=== PATIENT | female | born 1980 | race African-American/Black ===

== ENCOUNTER 2018-08-06 10:08 | Emergency (ER) | payer MEDICARE, OTHER ==
[~2018-08-06] VITALS: Ht 165.1 cm; Wt 131.8 kg
[2018-08-06 10:40] LABS: GLUCOSE,POINT OF CARE 164 MG/DL (70-110)
[2018-08-06] MEDS ORDERED: METF-960 PO ×2 (12:09→12:11)
[2018-08-06] MEDS ORDERED: NAPR-58 PO (12:09)
[2018-08-06] MEDS ORDERED: KETOROLAC TROMETHAMINE 60 MG/2 ML VIAL IM ONE (12:15)
[2018-08-06 14:06] VITALS: BP 102/66
== END 2018-08-06 14:28 | disposition home or self-care (01) ==
LOC: EMS 10:10
DX: M25.562 Pain in left knee (principal); M79.89 Other specified soft tissue disorders; E11.9 Type 2 diabetes mellitus without complications; J45.909 Unspecified asthma, uncomplicated; F20.9 Schizophrenia, unspecified; F17.210 Nicotine dependence, cigarettes, uncomplicated; F15.90 Other stimulant use, unspecified, uncomplicated; Z91.013 Allergy to seafood; Z79.899 Other long term (current) drug therapy; Z98.51 Tubal ligation status
CPT/HCPCS: 29505; 73562; 82962; 96372; 99283; 99406; J1885

== ENCOUNTER 2025-01-16 21:24 | Emergency (ER) | payer OTHER ==
[~2025-01-16] VITALS: Ht 167.6 cm; Wt 90.9 kg
[~2025-01-16 21:24] MED LIST: METF-1211 PO; NAPR-1196 PO
[2025-01-16 21:35] VITALS: BP 145/70; PULSE 86; RESP 18; TEMP 98.1; O2SAT 100
== END 2025-01-17 02:50 | disposition left against medical advice (07) ==
LOC: EMS 21:24
DX: R51.9 Headache, unspecified (principal); Z53.21 Procedure and treatment not carried out due to patient leaving prior to being seen by health care provider
CPT/HCPCS: 99281; Z7502